=== PATIENT | female | born 2000 | race Caucasian/White ===

== ENCOUNTER → 2020-04-19 10:10 | Outpatient (CLI) | payer OTHER, SELFPAY ==
--- NOTE | ~2020-04-19 | US_ITS ---
EXAMINATION: US OB >= 14 weeks Fetus DATE: 04/19/2020 11:39 INDICATION: Second trimester anatomic survey TECHNIQUE: Real-time ultrasound of the pelvis was performed. COMPARISON: None. FINDINGS: There is a single living fetus in vertex presentation. The placenta is posterior and 5.1 cm from the internal cervical os. heart rate is 147 beats per minute (bpm). cardiac activity and fet al movement are noted. The amniotic fluid index is subjectively normal. The following anatomy was identified as normal: 4 chamber heart 3 vessel cord cord insertion kidneys urinary bladder stomach spine diaphragm ventricles cisterna magna cerebellum The following biometric data were obtained: Biparietal diameter (BPD): 4.3 cm; head circumference (HC): 16.1 cm; abdominal circumference (AC): 13 .9 cm; femur length (FL): 2.8 cm. These measurements are concordant. Estimated weight is 266 g +/- 40 g, which correlates with the 35th percentile when 09/12/2020 is used as estimated date of delivery. As single measurements, these parameters are each equal to the following estimated gestational ages w ith ranges of +/- 2 standard deviations: BPD: 19 weeks 0 days ( 17 weeks 2 days - 20 weeks 6 days). HC: 19 weeks 0 days ( 17 weeks 3 days - 20 weeks 3 days). AC: 19 weeks 2 days ( 17 weeks 2 days - 21 weeks 3 days). FL: 18 weeks 4 days ( 16 weeks 5 days - 20 weeks 3 days). estimated gestational age based solely on measurements from this exam is 19 weeks 0 days +/- 1 weeks 2 days. IMPRESSION: 1. Single living fetus in vertex presentation. 2. Estimated weight is 266 g +/- 40 g, which correlates with the 35th percentile when 09/12/2020 is used as estimated date of delivery. Reviewed, dictated and finalized at location A. [facility] IMPRESSION: 1. Single living fetus in vertex presentation. 2. Estimated weight is 266 g +/- 40 g, which correlates with the 35th per centile when 09/12/2020 is used as estimated date of delivery.
== END ==
PROVIDERS: Visit Provider Obstetrics & Gynecology
DX: Z36.9 Encounter for antenatal screening, unspecified (principal); Z3A.00 Weeks of gestation of pregnancy not specified
CPT/HCPCS: 76805